=== PATIENT | male | born 1945 | race Caucasian/White ===

== ENCOUNTER 2017-05-12 07:08 | Inpatient (IN) | payer OTHER ==
[~2017-05-12] VITALS: Ht 177.8 cm; Wt 103.2 kg
[2017-05-12 07:20] VITALS: BP 151/94
[2017-05-12 15:19] VITALS: BP 114/62
[2017-05-12] MEDS ORDERED: LEVOTHYROXIN0.025 M2 PO (16:32)
[2017-05-12] MEDS ORDERED: LOVASTATIN40 MG PO (16:32)
[2017-05-12] MEDS ORDERED: LEXAPRO20 MG PO (16:33)
[2017-05-12] MEDS ORDERED: HYDROCHLOROTHIA25 MG PO (16:33)
[2017-05-12] MEDS ORDERED: MELOXICAM7.5 M1 PO (16:33)
[2017-05-12 17:12] VITALS: BP 102/73
[2017-05-12 17:55] LABS: MAGNESIUM 1.4 mg/dL (1.8-2.4); PHOSPHOROUS 3.2 mg/dL (2.5-4.9)
[2017-05-12 18:08] LABS: T3 TOTAL 0.91 ng/mL
[2017-05-12 18:22] LABS: FREE THYROXINE INDEX 2.5 ug/dL (1.4-4.5); T4(THYROXINE) 6.7 ug/dL (4.7-13.3)
[2017-05-12 20:52] VITALS: BP 124/63
[2017-05-12 22:25] LABS: CALCIUM 8.6 mg/dL (8.5-10.1); CARBON DIOXIDE 26.8 mmol/L (21-32); CHLORIDE SERUM 102 mmol/L (98-107); GFR1 > 60 mL/min; GLUCOSE SERUM 139 mg/dL (74-106); POTASSIUM SERUM 4.1 mmol/L (3.5-5.1); SODIUM SERUM 138 mmol/L (136-145)
[2017-05-12 22:48] LABS: RED CELL DISTRIBUTION WIDTH 13.9 % (11.5-14.5)
[2017-05-12 22:49] LABS: PLATELET COUNT 235 x10^3mcL (130-400)
[2017-05-12 22:50] LABS: BAND NEUTROPHIL 8 % (0-10); BASOPHIL 1 % (0-2); MONOCYTE 7 % (0-7); SEGMENTED NEUTROPHILS 75 % (37-75); rbc morphology (normal/abnorm) ABNORMAL (NORMAL)
[2017-05-12 22:51] LABS: PLATELET MORPHOLOGY PLATELETS NORMAL
[2017-05-12 23:35] VITALS: BP 124/63
[2017-05-13 06:03] VITALS: BP 122/62
[2017-05-13 07:06] LABS: BASOPHIL % 1.1 % (0-2); PLATELET COUNT 212 x10^3mcL (130-400); RED CELL DISTRIBUTION WIDTH 12.9 % (11.5-14.5)
[2017-05-13 07:18] LABS: CALCIUM 8.2 mg/dL (8.5-10.1); CARBON DIOXIDE 28.8 mmol/L (21-32); CHLORIDE SERUM 99 mmol/L (98-107); CREATININE SERUM 0.9 mg/dL (0.7-1.3); GFR1 > 60 mL/min; GLUCOSE SERUM 113 mg/dL (74-106); MAGNESIUM 1.5 mg/dL (1.8-2.4); PHOSPHOROUS 3.1 mg/dL (2.5-4.9); POTASSIUM SERUM 3.8 mmol/L (3.5-5.1); SODIUM SERUM 134 mmol/L (136-145)
[2017-05-13 09:09] VITALS: BP 132/65
[2017-05-13 12:22] LABS: IRON 12 ug/dL (65-170); TOTAL IRON BINDING CAPACITY 205 ug/dL (250-450)
[2017-05-13 12:42] LABS: RED BLOOD CELLS 2.84 M/mm3 (4.52-5.90)
[2017-05-13 14:12] VITALS: BP 123/63
[2017-05-13 14:18] LABS: BILIRUBIN DIRECT 0.11 mg/dL (0.0-0.2); BILIRUBIN TOTAL 0.43 mg/dL (0.20-1.00)
[2017-05-13 14:20] LABS: ALBUMIN 3.1 g/dL (3.4-5.0); TOTAL PROTEIN, SERUM 5.9 g/dL (6.4-8.2)
[2017-05-13 16:38] VITALS: BP 155/74
[2017-05-13 21:44] VITALS: BP 143/69
[2017-05-14 06:18] VITALS: BP 139/65
[2017-05-14 07:04] LABS: BASOPHIL % 0.7 % (0-2); PLATELET COUNT 189 x10^3mcL (130-400); RED CELL DISTRIBUTION WIDTH 12.6 % (11.5-14.5)
[2017-05-14 07:06] LABS: CALCIUM 8.5 mg/dL (8.5-10.1); CARBON DIOXIDE 29.6 mmol/L (21-32); CHLORIDE SERUM 98 mmol/L (98-107); CREATININE SERUM 0.9 mg/dL (0.7-1.3); GFR1 > 60 mL/min; GLUCOSE SERUM 124 mg/dL (74-106); MAGNESIUM 1.9 mg/dL (1.8-2.4); POTASSIUM SERUM 4.4 mmol/L (3.5-5.1); SODIUM SERUM 133 mmol/L (136-145)
[2017-05-14 10:30] VITALS: BP 133/61
[2017-05-14 18:20] VITALS: BP 121/70
[2017-05-14 20:59] VITALS: BP 147/63
[2017-05-15 05:32] VITALS: BP 161/66
[2017-05-15 07:54] LABS: BASOPHIL % 0.1 % (0-2); PLATELET COUNT 185 x10^3mcL (130-400); RED CELL DISTRIBUTION WIDTH 13.1 % (11.5-14.5)
[2017-05-15 08:01] LABS: CALCIUM 8.2 mg/dL (8.5-10.1); CARBON DIOXIDE 28.3 mmol/L (21-32); CHLORIDE SERUM 96 mmol/L (98-107); CREATININE SERUM 0.9 mg/dL (0.7-1.3); GFR1 > 60 mL/min; GLUCOSE SERUM 98 mg/dL (74-106); POTASSIUM SERUM 3.5 mmol/L (3.5-5.1); SODIUM SERUM 133 mmol/L (136-145)
[2017-05-15 09:50] VITALS: BP 135/73
[2017-05-15] MEDS ORDERED: FER300 PO (12:30)
[2017-05-15] MEDS ORDERED: LEADER NATURA500 MCG PO (12:31)
[2017-05-15] MEDS ORDERED: VITC PO (12:31)
[2017-05-15] MEDS ORDERED: FLE10 PO (12:32)
[2017-05-15 14:50] VITALS: BP 135/73
== END 2017-05-15 15:40 | DRG 470 ==
LOC: MU 07:08 → DU 07:08 → MU 15:54 → DU 17:06 → MU 05-13 12:09
PROVIDERS: Family Medicine; Neuromusculoskeletal Medicine, Sports Medicine
PROC: 0SRB01A Replacement of Left Hip Joint with Metal Synthetic Substitute, Uncemented, Open Approach (ICD-10-PCS; principal; 2017-05-12 09:00)
DX: M16.12 Unilateral primary osteoarthritis, left hip (principal); E87.1 Hypo-osmolality and hyponatremia; E44.0 Moderate protein-calorie malnutrition; E83.42 Hypomagnesemia; E83.51 Hypocalcemia; F32.9 Major depressive disorder, single episode, unspecified; D53.9 Nutritional anemia, unspecified; E03.9 Hypothyroidism, unspecified; G47.33 Obstructive sleep apnea (adult) (pediatric); Z96.641 Presence of right artificial hip joint; E66.9 Obesity, unspecified; Z68.32 Body mass index [BMI] 32.0-32.9, adult
CPT/HCPCS: 83880; 84439; 97110-GP; 97116-GP; 97530-GP; C1776; J0690; J1650; J1885; J2270; J2274; J2704; J3475; J3490; J7030; J7050; J7120; Q0092

== ENCOUNTER 2017-10-22 19:00 | Emergency (ER) | payer OTHER ==
[~2017-10-22] VITALS: Ht 180.3 cm; Wt 99.8 kg
[~2017-10-22 19:00] MED LIST: FER300 PO; FLE10 PO; HYDROCHLOROTHIA25 MG PO; LEADER NATURA500 MCG PO; LEVOTHYROXIN0.025 M2 PO; LEXAPRO20 MG PO; LOVASTATIN40 MG PO; MELOXICAM7.5 M1 PO; VITC PO
[2017-10-22 19:05] VITALS: Ht 180.3 cm; Wt 99.8 kg
[2017-10-22 22:01] VITALS: BP 158/79
== END 2017-10-22 22:01 | disposition home or self-care (01) ==
LOC: ED 19:00
DX: S73.005A Unspecified dislocation of left hip, initial encounter (principal); X50.1XXA Overexertion from prolonged static or awkward postures, initial encounter; Y93.89 Activity, other specified; Y92.89 Other specified places as the place of occurrence of the external cause; Y99.8 Other external cause status
CPT/HCPCS: J2405; J3010; J3490

== ENCOUNTER 2020-03-24 07:40 | Observation (INO) | payer OTHER ==
[~2020-03-24] VITALS: Ht 180.3 cm; Wt 102.1 kg
[~2020-03-24 07:40] MED LIST changes: +FLO4 PO; -MELOXICAM7.5 M1 PO
[2020-03-24 07:55] VITALS: Ht 180.3 cm; Wt 102.1 kg
[2020-03-24 08:31] LABS: BASOPHIL % 0.3 % (0-2); PLATELET COUNT 209 x10^3mcL (130-400); RED CELL DISTRIBUTION WIDTH 13.7 % (11.5-14.5)
[2020-03-24 08:49] LABS: CALCIUM 9.1 mg/dL (8.5-10.1); CARBON DIOXIDE 30.3 mmol/L (21-32); CHLORIDE SERUM 97 mmol/L (98-107); GLUCOSE SERUM 103 mg/dL (74-106); POTASSIUM SERUM 4.1 mmol/L (3.5-5.1); SODIUM SERUM 134 mmol/L (136-145)
[2020-03-24 08:54] LABS: ALBUMIN 3.9 g/dL (3.4-5.0); ALKALINE PHOSPHATASE 52 U/L (46-116); ALT/SGPT 24 U/L (16-63); AST/SGOT 17 U/L (15-37); BILIRUBIN TOTAL 0.62 mg/dL (0.20-1.00); TOTAL PROTEIN, SERUM 7.1 g/dL (6.4-8.2)
[2020-03-24] MEDS ORDERED: ARICEPT10 MG PO (11:16)
[2020-03-24 14:03] VITALS: BP 151/80
[2020-03-24 16:09] VITALS: BP 143/68
[2020-03-24 20:26] VITALS: BP 145/88
[2020-03-25 05:41] VITALS: BP 163/85
[2020-03-25 06:52] LABS: BASOPHIL % 0.3 % (0-2); PLATELET COUNT 228 x10^3mcL (130-400); RED CELL DISTRIBUTION WIDTH 14.2 % (11.5-14.5)
[2020-03-25 08:20] VITALS: BP 147/82
[2020-03-25 08:21] LABS: ALBUMIN 3.8 g/dL (3.4-5.0); ALKALINE PHOSPHATASE 52 U/L (46-116); ALT/SGPT 23 U/L (16-63); AST/SGOT 17 U/L (15-37); BILIRUBIN TOTAL 0.6 mg/dL (0.20-1.00); CALCIUM 8.7 mg/dL (8.5-10.1); CARBON DIOXIDE 32.2 mmol/L (21-32); CHLORIDE SERUM 99 mmol/L (98-107); CHOLESTEROL 173 mg/dL (<200); CREATININE SERUM 0.9 mg/dL (0.7-1.3); GLUCOSE SERUM 86 mg/dL (74-106); LIPASE 84 IU/L (73-393); MAGNESIUM 2.1 mg/dL (1.8-2.4); PHOSPHOROUS 3.2 mg/dL (2.5-4.9); POTASSIUM SERUM 4.5 mmol/L (3.5-5.1); SODIUM SERUM 136 mmol/L (136-145); TOTAL PROTEIN, SERUM 7.1 g/dL (6.4-8.2); TRIGLYCERIDES 96 mg/dL (<150)
[2020-03-25 08:36] LABS: CHOLESTEROL/HDL RATIO 2.5; HDL CHOLESTEROL 69 mg/dL (40-60)
[2020-03-25 12:16] VITALS: BP 121/73
[2020-03-25 16:48] VITALS: BP 157/84
[2020-03-25] MEDS ORDERED: MELOXICAM7.5 M1 PO (18:04)
[2020-03-25 18:06] VITALS: BP 157/84
== END 2020-03-25 19:16 | disposition home or self-care (01) ==
LOC: ED 07:40 → MU 12:28
PROVIDERS: Emergency Medicine; ADMIT Hospitalist; ATTEND Hospitalist
DX: M24.452 Recurrent dislocation, left hip (principal); N40.0 Benign prostatic hyperplasia without lower urinary tract symptoms; E03.9 Hypothyroidism, unspecified; F03.90 Unspecified dementia, unspecified severity, without behavioral disturbance, psychotic disturbance, mood disturbance, and anxiety; I10 Essential (primary) hypertension; E78.5 Hyperlipidemia, unspecified; Z98.890 Other specified postprocedural states
CPT/HCPCS: 97112-GP; G0378; J1650; J2270; J2405; J2704